=== PATIENT | female | born 1995 | race Caucasian/White ===

== ENCOUNTER 2017-02-25 01:56 | Emergency (ER) | payer BC, OTHER ==
[2017-02-25 02:10] VITALS: BMI 33.0
[2017-02-25] MEDS ORDERED: ZOFRAN INJ 4 MG VIAL IVP ONE (03:20)
[2017-02-25] MEDS ORDERED: NS 1000 ML 1,000 ML IV ONE ×2 (03:20→04:12)
[2017-02-25] MEDS ORDERED: NS 1000 ML 1,000 ML ONE ×2 (03:27→04:07)
[2017-02-25] MEDS ORDERED: ZOFRAN INJ 4 MG VIAL ONE (03:27)
[2017-02-25 03:34] LABS: BASOPHILS # (AUTO) 0.1 X10^3/uL (0.0-0.1); BASOPHILS % (AUTO) 0.5 % (0.2-1.0); EOSINOPHILS # (AUTO) 0.4 x10^3/uL (0.0-0.2); HEMATOCRIT 42.2 % (36.0-47.0); HEMOGLOBIN 14.6 g/dL (12.0-16.0); LYMPHOCYTES # (AUTO) 1.8 X10^3/uL (1.3-2.9); LYMPHOCYTES % (AUTO) 18.7 % (21.0-51.0); MEAN CORPUSCULAR HEMOGLOBIN 29.5 pg (27.0-34.0); MEAN CORPUSCULAR HGB CONC 34.6 g/dL (33.0-35.0); MEAN CORPUSCULAR VOLUME 85.3 fL (80.0-100.0); MEAN PLATELET VOLUME 8.8 fL (7.4-11.0); MONOCYTES # (AUTO) 0.8 x10^3/uL (0.3-0.8); MONOCYTES % (AUTO) 8.6 % (0.0-13.0); NEUTROPHILS # (AUTO) 6.7 x10^3/uL (2.2-4.8); NEUTROPHILS % (AUTO) 68.2 % (42.0-75.0); PLATELET COUNT 226 X10^3/uL (150.0-450.0); RED BLOOD COUNT 4.95 X10^6/uL (3.5-5.4); RED CELL DISTRIBUTION WIDTH 13.8 % (11.6-16.5); WHITE BLOOD COUNT 9.9 X10^3/uL (3.6-10.0)
[2017-02-25] MEDS ORDERED: MORPHINE SULFATE INJ 4 MG IVP ONE (03:35)
--- NOTE | 2017-02-25 03:35 | DR.GENAD ---
HPI - HPI Comment HPI Comment: PATIENT WITH BELOW CONDION. HAVIND ABDOMINAL PAIN WITH N/V AND LOW GRADE FEVER. OUT OF HER ORAL STERIODS. DENIES HEMATURIA. NO NEW SKIN RASH. - Complaint/Symptoms Chief Complaint Doctors Comments: IGA NEPHROPATHY AND VASCULITIS, FLARE UP PAST FEW DAYS. Chief Complaint:: PT STATES SHE HAS IGA NEPHROPATHY AND HAS BEEN HAVING PAIN IN HER ABDOMEN AND BACK THAT IS MORE SEVERE THAN USUAL. STATES THAT SHE VOMITED "ABOUT 5 TIMES" TODAY. Self Treatment fo Chief Complaint: 800 IBUPROFEN ABOUT 1900 FLEXARIL AT 2100 - Nurses notes reviewed Nurses Notes Review: Yes - Source History Provided: Patient - Mode of Arrival Mode of Arrival: Ambulatory - Timing Onset of Chief Complaint: 02/24/17 Came on: Suddenly - Duration Duration: Constant Duration: Days - Severity Severity: Moderate PMH - PMH Past Medical History: Yes Past Medical History: Diabetes Past Medical History Comment: "KIDNEY PROBLEM, PCOS" Past Surgical History: Yes Surgical History: Cholecystectomy - Family History History of Family Medical Conditions: Yes Family Medical History: Diabetes Mellitus, Cancer, [place], Hypertension - Social History Do you use any recreational Drugs:: No - infectious screening Have you traveled outside the country in the last 6 months?: No ROS - Review of Systems Constitutional: Fever, Weakness, Fatigue. negative: Chills, Diaphoresis Eyes: negative: Eye Pain, Discharge ENTM: negative: Ear Pain, Nose Discharge, Nose Congestion, Throat Pain Respiratoy: Non-Productive Cough. negative: Short of Breath, Wheezing Cardiovascular: No Symptoms Reported Gastrointestinal/Abdominal: Abdominal Pain, Nausea, Vomiting Genitourinary: negative: Dysuria, Frequency, Hematuria, Bleeding Neurological: Headache, Weakness, Dizziness Musculoskeletal: Muscle Pain Integumentary: Rash (CHRONIC PURPURIC [id number]) Hematologic/Lymphatic: No Symptoms Reported Endocrine: No Symptoms Reported All Other Systems: Reviewed and Negative PE - Vital Signs Vitals: Temperature 97.8 F Pulse Rate [Right Radial] 100 Pulse Rate 112 Respiratory Rate 18 Blood Pressure [Left Arm] 113/71 Blood Pressure 147/87 O2 Sat by Pulse Oximetry 97 - General Limitations: No Limitations General Appearance: Alert - Head Head Exam: Normal Inspection - Eyes Eye exam: Normal Appearance - ENT ENT Exam: Normal External Ear Exam External Ear Exam: Normal External Inspection TM/Canal Exam: Bilateral Normal Nose Exam: Normal Nose Exam Mouth Exam: Normal Inspection Throat Exam: Normal Inspection - Neck Neck Exam: Trachea Midline - Chest Chest Inspection: Symmetric Chest Wall Rise - Respiratory Respiratory Exam: Normal Lung Sounds Bilat Respiratory Exam: Bilateral Clear to Auscultation - Cardiovascular Cardiovascular Exam: Regular Rate, Normal Rhythm, Normal Heart Sounds - Abdominal Exam Abdominal Exam: Normal Bowel Sounds, Soft. negative: Tenderness - Extremities Extremities Exam: Other (CHRONIC PURPURIC LESIONS) - Back Back Exam: Normal Inspection - Neurologic Neurological Exam: Alert, Oriented X3 - Psychiatric Psychiatric Exam: Anxious - Skin Skin Exam: Rash MDM - Additional Information Additional Information Obtained From: Family - Differential Diagnosis Differential Diagnosis: IGA NEPHROPATHY, VASCULITIS, ABDOMINAL PAIN, UTI Course - Treatment Treatment: SEE ORDERS. IV FLUIDS AND MEDS IN ED. - Education/Counseling Education/Counseling: Patient, Family, Education Educated On: Treatment, Diagnosis, Needs for Follow Up ROR - Labs Reviewed Laboratory Results Reviewed?: Yes Result Diagrams: 02/25/17 03:25 02/25/17 03:25 Laboratory: WBC 9.9 X10^3/uL (3.6-10.0) 02/25/17 03:25 RBC 4.95 X10^6/uL (3.5-5.4) 02/25/17 03:25 Hgb 14.6 g/dL (12.0-16.0) 02/25/17 03:25 Hct 42.2 % (36.0-47.0) 02/25/17 03:25 MCV 85.3 fL (80.0-100.0) 02/25/17 03:25 MCH 29.5 pg (27.0-34.0) 02/25/17 03:25 MCHC 34.6 g/dL (33.0-35.0) 02/25/17 03:25 RDW 13.8 % (11.6-16.5) 02/25/17 03:25 Plt Count 226 X10^3/uL (150.0-450.0) 02/25/17 03:25 MPV 8.8 fL (7.4-11.0) 02/25/17 03:25 Neut % 68.2 % (42.0-75.0) 02/25/17 03:25 Lymph % 18.7 % (21.0-51.0) L 02/25/17 03:25 [place] % 8.6 % (0.0-13.0) 02/25/17 03:25 Eos % 4.0 % (0.9-2.9) H 02/25/17 03:25 Baso % 0.5 % (0.2-1.0) 02/25/17 03:25 Neut # 6.7 x10^3/uL (2.2-4.8) H 02/25/17 03:25 Lymph # 1.8 X10^3/uL (1.3-2.9) 02/25/17 03:25 [place] # 0.8 x10^3/uL (0.3-0.8) 02/25/17 03:25 Eos # 0.4 x10^3/uL (0.0-0.2) H 02/25/17 03:25 Baso # 0.1 X10^3/uL (0.0-0.1) 02/25/17 03:25 Absolute Nucleated RBC 0.0 /100WBC 02/25/17 03:25 Sodium 138 mmol/L (136-145) 02/25/17 03:25 Corrected Sodium 139 mmol/L (136-145) 02/25/17 03:25 Potassium 3.7 mmol/L (3.5-5.1) 02/25/17 03:25 Chloride 101 mmol/L (98-107) 02/25/17 03:25 Carbon Dioxide 25.8 mmol/L (21-32) 02/25/17 03:25 BUN 10 mg/dL (7-18) 02/25/17 03:25 Creatinine 0.81 mg/dL (0.55-1.02) 02/25/17 03:25 Est GFR (MDRD) Af Amer > 60 (>60) 02/25/17 03:25 Est GFR (MDRD) Non-Af > 60 (>60) 02/25/17 03:25 Glucose 150 mg/dL (65-99) H 02/25/17 03:25 Calcium 9.6 mg/dL (8.5-10.1) 02/25/17 03:25 Corrected Calcium TNP 02/25/17 03:25 Total Bilirubin 1.10 mg/dL (0.2-1.0) H 02/25/17 03:25 AST 96 Units/L (15-37) H 02/25/17 03:25 ALT 97 Units/L (12-78) H 02/25/17 03:25 Alkaline Phosphatase 123 Units/L (46-116) H 02/25/17 03:25 Total Protein 8.6 g/dL (6.4-8.2) H 02/25/17 03:25 Albumin 3.8 g/dL (3.4-5.0) 02/25/17 03:25 Globulin 4.8 g/dL (2.5-4.5) H 02/25/17 03:25 Albumin/Globulin Ratio 0.8 Ratio (1.1-2.1) L 02/25/17 03:25 Specimen Type Clean catch urine 02/25/17 05:19 Urine Color Yellow (YELLOW) 02/25/17 05:19 Urine Appearance Slightly hazy (CLEAR) 02/25/17 05:19 Urine pH 9.0 (5.0 - 8.0) 02/25/17 05:19 Ur Specific [place] 1.020 (1.000-1.030) 02/25/17 05:19 Urine Protein Negative (NEGATIVE) 02/25/17 05:19 Urine Glucose (UA) Negative (NEGATIVE) 02/25/17 05:19 Urine Ketones Negative (NEGATIVE) 02/25/17 05:19 Urine Occult Blood Negative (NEGATIVE) 02/25/17 05:19 Urine Nitrite Negative (NEGATIVE) 02/25/17 05:19 Urine Bilirubin Negative (NEGATIVE) 02/25/17 05:19 Urine Urobilinogen Normal (NORMAL) 02/25/17 05:19 Ur Leukocyte Esterase 1+ (NEGATIVE) 02/25/17 05:19 Urine RBC None seen /HPF (NEGATIVE) 02/25/17 05:19 Urine WBC 3-5 /HPF (NEGATIVE) 02/25/17 05:19 Ur Squamous Epith Cells Many /HPF (NEGATIVE) 02/25/17 05:19 Urine Bacteria 1+ /HPF (NEGATIVE) 02/25/17 05:19 Urine Mucus Many /HPF (NEGATIVE) 02/25/17 05:19 Ur Culture Indicated? No/not indicated 02/25/17 05:19 Streptococcus Screen Negative (NEGATIVE) 02/25/17 03:40 - Diagnosis Discharge Problem: IgA nephropathy Abdominal pain Qualifiers: Abdominal location: generalized Qualified Code(s): R10.84 - Generalized abdominal pain - Discharge Plan Disposition: HOME, SELF-CARE Condition: Stable Prescriptions: Methylprednisolone Dosepak 4Mg [MEDROL DOSEPAK (4 mg tab x 21)] 1 olive PO ONCE # 1 olive - Follow ups/Referrals Follow ups/Referrals: MICHELLE GUALLPA [Primary Care Provider] - 3 days - Instructions Instructions: Vasculitis, Abdominal Pain, Adult, [id number] Additional Instructions: RETURN TO ED IF WORSE.
[2017-02-25] MEDS ORDERED: MORPHINE SULFATE INJ 2 MG INJ ONE ×2 (03:39→04:37)
[2017-02-25 03:47] LABS: ALANINE AMINOTRANSFERASE 97 Units/L (12-78); ALBUMIN 3.8 g/dL (3.4-5.0); ALKALINE PHOSPHATASE 123 Units/L (46-116); ASPARTATE AMINO TRANSFERASE 96 Units/L (15-37); BLOOD UREA NITROGEN 10 mg/dL (7-18); CALCIUM 9.6 mg/dL (8.5-10.1); CARBON DIOXIDE 25.8 mmol/L (21-32); CHLORIDE 101 mmol/L (98-107); COR NA(FOR HYPERGLY) 139 mmol/L (136-145); CREATININE 0.81 mg/dL (0.55-1.02); SODIUM 138 mmol/L (136-145); TOTAL PROTEIN 8.6 g/dL (6.4-8.2); eGFR BLACK RACES > 60 (>60); eGFR NON BLACK RACES > 60 (>60)
[2017-02-25 05:32] LABS: BILIRUBIN,URINE NEGATIVE (NEGATIVE); BLOOD/HEMOGLOBIN,URINE NEGATIVE (NEGATIVE); GLUCOSE, URINE NEGATIVE (NEGATIVE); KETONES,URINE NEGATIVE (NEGATIVE); LEUKOCYTE ESTERASE ,URINE 1+ (NEGATIVE); NITRITES,URINE NEGATIVE (NEGATIVE); PROTEIN,URINE NEGATIVE (NEGATIVE); UROBILINOGEN,URINE NORMAL (NORMAL)
[2017-02-25 05:41] LABS: APPEARANCE,URINE SLIGHTLY HAZY (CLEAR); BACTERIA,URINE 1+ /HPF (NEGATIVE); COLOR,URINE YELLOW (YELLOW); MUCUS,URINE MANY /HPF (NEGATIVE); RBC,URINE NONE SEEN /HPF (NEGATIVE); SQUAMOUS EPITHELIAL CELL,UR MANY /HPF (NEGATIVE)
[2017-02-25] MEDS ORDERED: SOLU-Medrol 125 MG VIAL IVP ONE (05:43)
[2017-02-25] MEDS ORDERED: SOLU-Medrol 125 MG VIAL ONE (05:45)
[2017-02-25 06:06] VITALS: BP 113/71
== END 2017-02-25 06:00 | disposition home or self-care (01) ==
LOC: ER 01:56
DX: N02.8 Recurrent and persistent hematuria with other morphologic changes (principal); R10.84 Generalized abdominal pain
CPT/HCPCS: 36415; 80053; 81001; 85025; 87070; 87880; 96365; 96367; 96374; 96375; 99283; A4222; J2270; J2405; J2930

== ENCOUNTER 2024-12-13 17:10 | Observation (INO) ==
[2024-12-13] MEDS ORDERED: PHARMACY CONSULT - MEROPENEM XX SCH (17:30)
[2024-12-13 19:21] LABS: COR CA(FOR HYPOALB) 9.8 mg/dL (8.5-10.1); COR NA(FOR HYPERGLY) 141 mmol/L (136-145); CREATININE 0.59 mg/dL (0.55-1.02); eGFR NON BLACK RACES > 60 (>60)
[2024-12-13 19:41] LABS: BLOOD/HEMOGLOBIN,URINE 2+ (NEGATIVE); LEUKOCYTE ESTERASE ,URINE NEGATIVE (NEGATIVE); NITRITES,URINE NEGATIVE (NEGATIVE)
[2024-12-13 19:42] LABS: APPEARANCE,URINE SLIGHTLY HAZY (CLEAR)
[2024-12-13 19:50] LABS: SQUAMOUS EPITHELIAL CELL,UR NUMEROUS /HPF (NEGATIVE); YEAST,URINE FEW /HPF (NEGATIVE)
[2024-12-13 20:12] VITALS: BMI 33.4
[2024-12-13] MEDS: NORCO 5/325 MG TAB PO PRN (20:13)
[2024-12-13] MEDS: MERREM VIAL 1 G in NS 100 ML IV 100 ML IV SCH (20:51)
[2024-12-13] MEDS: NS 1,000 ML IV 1,000 ML IV SCH (20:51)
[2024-12-13] MEDS: SNACK - Diabetic Appropriate PO SCH (20:59)
[2024-12-14] MEDS: MAG-OX TAB PO SCH (00:59)
[2024-12-14] MEDS: K-DUR TAB 20 MEQ PO SCH (00:59)
[2024-12-14] MEDS ORDERED: CONSULT PHARMACY - POTASSIUM & MAGNESIUM XX SCH ×2 (01:00→07:00)
[2024-12-14 05:51] LABS: MEAN PLATELET VOLUME 8.5 fL (7.4-11.0); RED CELL DISTRIBUTION WIDTH 14.5 % (11.6-16.5)
[2024-12-14] MEDS: NovoLIN R (or HumuLIN R) SUBCUT PRN (06:01)
[2024-12-14 06:13] LABS: COR CA(FOR HYPOALB) 9.8 mg/dL (8.5-10.1); COR NA(FOR HYPERGLY) 141 mmol/L (136-145); CREATININE 0.58 mg/dL (0.55-1.02); eGFR NON BLACK RACES > 60 (>60)
[2024-12-14] MEDS: NS 1,000 ML IV 1,000 ML with MAGNESIUM SULFATE 50% INJ VIAL 2 G IV SCH (08:23)
[2024-12-14] MEDS ORDERED: MAG-OX TAB PO SCH (09:00)
[2024-12-14] MEDS ORDERED: LEXAPRO ONE (09:09)
[2024-12-14] MEDS: LEXAPRO PO SCH (09:15)
[2024-12-14] MEDS: LANTUS SC SCH (09:15)
--- NOTE | 2024-12-14 09:31 | RAD ---
EXAM: Chest PA and lateral views HISTORY: Sepsis fever COMPARISON: Report only 06/12/2016 FINDINGS: Normal appearance of heart, lungs, mediastinum and pleural surfaces. There is no evidence for inflammatory infiltrate/pneumonia, congestion or other significant process. IMPRESSION: Chest examination within normal limits. THIS IS AN ELECTRONICALLY VERIFIED FINAL REPORT 12/14/2024 9:28 AM - Electronically signed by Carlos Manuel Tidwell MD
[2024-12-14] MEDS: NORCO 5/325 MG TAB PO PRN (12:54)
--- NOTE | 2024-12-14 13:39 | RAD ---
EXAM: Portable chest HISTORY: PICC placement COMPARISON: 12/14/2024 8:01 a.m. FINDINGS: There is a left-sided PICC line with its tip in the expected position of the superior vena cava. Heart size is upper limits normal. No congestive heart failure identified. No infiltrates or pleural effusions identified. Bony thorax is unremarkable. IMPRESSION: Left PICC tip superior vena cava near the cavoatrial junction Lungs clear THIS IS AN ELECTRONICALLY VERIFIED FINAL REPORT 12/14/2024 1:36 PM - Electronically signed by Demetrius Peterson MD
--- NOTE | 2024-12-14 13:50 | DR.UPDATE ---
H&P Update Prescription drug monitoring program results: PDMP was not reviewed H&P Reviewed: Yes Any changes to H&P?: No Patient was examined?: Yes Vital Signs: Temp Pulse Resp BP BP Pulse Ox O2 Del Method 12/14/24 12:00 98.3 F 79 17 123/60 96 Room Air 12/14/24 08:16 20 12/14/24 08:00 98.2 F 85 18 124/71 96 Room Air 12/14/24 07:16 20 12/14/24 07:00 Room Air 12/14/24 03:53 98.6 F 87 20 126/77 97 Room Air 12/14/24 02:14 20 12/14/24 01:14 16 12/14/24 00:00 98.4 F 98 H 20 135/74 97 Room Air 12/13/24 21:13 16 12/13/24 20:13 16 12/13/24 20:00 98.7 F 101 H 19 134/83 97 Room Air 12/13/24 19:00 Room Air 12/13/24 18:36 Room Air 12/13/24 18:35 98.1 F 91 H 20 130/75 97 Room Air Procedures (ALL) - Central Line Placement PCM.CLCO: written consent Time out performed: Yes Patient placed pm monitor/pulse ox: Yes prep: mask, gown, gloves, other Centrial line prep: chlorhexidine scrub, sterile drapes applied Local anesthsia used: lidocane 1% Ultrasound used for placement: Yes (left basilic id'd via u/s and cannulation vis) Central line lumen ininserted: double (5.5fr arrowgard. trimmed to 45cm with 6cm exposed) Post procedure: good blood return, all ports aspirated, flushed,capped, sterile dressing applied Post procedure xray: tip oc catheter in good position (appears svc, radiology report pending) Patient tolerated procedure: Yes Complications: none
[2024-12-14] MEDS: READI-CAT 2 ONE (15:33)
[2024-12-14] MEDS: OMNIPAQUE 350 mg/mL 100 mL BTL 100 ML ONE ×2 (15:33)
--- NOTE | 2024-12-14 16:00 | CT ---
EXAM: CT ABDOMEN AND PELVIS WITH CONTRAST HISTORY: abdominal pain, flank pain; COMPARISON: Prior CT from June 20, 2013 is not available from the archives, report not available as well. TECHNIQUE: Axial CT images were obtained through the abdomen and pelvis after the intravenous administration of contrast. Radiopaque material noted within the colon suggesting that GI contrast was given. Coronal and sagittal reformatted images were included. All CT scans at this facility use dose modulation, iterative reconstruction, and/or weight based dosing when appropriate to reduce radiation dose to as low as reasonably achievable. FINDINGS: LOWER THORAX: Unremarkable. ABDOMEN: LIVER: Unremarkable. GALLBLADDER: Status post cholecystectomy. SPLEEN: Unremarkable. PANCREAS: Unremarkable. KIDNEYS: Unremarkable ADRENAL GLANDS: Unremarkable. ABDOMINAL AORTA: Abdominal aorta is unremarkable. Celiac artery, SMA, GITA appear patent. LYMPH NODES: No evidence of enlarged nodes. GI TRACT: No evidence for intestinal obstruction. 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 ASCITES: None. PNEUMOPERITONEUM: None. PELVIS: APPENDIX: Unremarkable. RECTOSIGMOID COLON: Unremarkable. BLADDER: Unremarkable. GENITALS: Unremarkable. ASCITES: None. LYMPH NODES: No evidence for enlarged nodes. INGUINAL HERNIA: None. BONES: No evidence for acute osseous findings. IMPRESSION: No evidence for acute process of the abdomen or pelvis. 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 Status post cholecystectomy. THIS IS AN ELECTRONICALLY VERIFIED FINAL REPORT 12/14/2024 3:56 PM - Electronically signed by Omkar Ram DO
[2024-12-14] MEDS ORDERED: SNACK - Diabetic Appropriate PO SCH (20:00)
[2024-12-15 07:20] LABS: COR CA(FOR HYPOALB) 9.5 mg/dL (8.5-10.1); COR NA(FOR HYPERGLY) 139 mmol/L (136-145); CREATININE 0.55 mg/dL (0.55-1.02); MEAN PLATELET VOLUME 8.5 fL (7.4-11.0); RED CELL DISTRIBUTION WIDTH 14.2 % (11.6-16.5); eGFR NON BLACK RACES > 60 (>60)
[2024-12-15] MEDS ORDERED: LEXAPRO ONE (09:08)
[2024-12-15] MEDS: INVanz INJ 1 GRAM VIAL 1 G in NS 100 ML IV 100 ML IV SCH (09:50)
[2024-12-15 14:06] VITALS: PULSE 82; O2SAT 97
[2024-12-15 14:09] VITALS: BP 114/65; RESP 20; TEMP 97.4
== END 2024-12-15 13:50 | disposition home or self-care (01) ==
LOC: MED/SURG
PROVIDERS: ADMIT Internal Medicine; ATTEND Internal Medicine